=== PATIENT | male | born 1965 | race Caucasian/White ===

== ENCOUNTER 2022-04-14 08:40 | Inpatient (IN) | payer OTHER, SELFPAY ==
[2022-04-14] VITALS (10 sets, daily range): BP systolic 150–192; BP diastolic 83–116; PULSE 78–106; RESP 12–20; TEMP 36.2–37; O2SAT 95–98; BMI 26.6; BMI 25.8
--- NOTE | 2022-04-14 08:57 | ED.RN ---
PT. WAS ELECTROCUTED IN NOVEMBER WHILE WELDING. PT. WAS NOT SEEN BY ANY DOCTOR. PT. REPORTS LEFT SIDE WEAKNESS HAS BEEN INTERMITTENT SINCE THEN, BUT THIS INCIDENT STARTED ON SUNDAY. HAS WEAK LEFT HAND GRASP. PURPLE DISCOLORATION TO LEFT FOOT. DORSALIS PEDAL PULSE PRESENT.
--- NOTE | 2022-04-14 09:08 | CT_ITS ---
STUDY: CTA HEAD AND NECK WITH CONTRAST REASON FOR EXAM: Male, 57 years old. Stroke RADIATION DOSAGE (If Supplied By Facility): CTDIvol = ( 19.45 ) mGy, DLP = ( 729.61 ) mGycm TECHNIQUE: CT angiography was performed with a multi-detector CT scanner. Data acquisition was obtained from the skull base through the vertex following intravenous administration of 75mL Isovue-370. MIP images were reconstructed from the axial data set. Post-processing of the angiographic images was performed, with multiplanar reformation and 3D reconstruction. Individualized dose optimization techniques were used for this CT. COMPARISON: No relevant priors. FINDINGS: Normal bilateral petrous carotid arteries. Normal right cavernous carotid artery with a normal supraclinoid bifurcation. Normal left cavernous carotid artery with a normal supraclinoid bifurcation. Normal right A1 segments of the anterior cerebral artery. Normal left A1 segments of the anterior cerebral artery. Normal intact anterior communicating artery (ACOM). Normal bilateral A2 segments of the anterior cerebral arteries. Normal right M1 and M2 segments of the middle cerebral arteries, with a normal M1 bifurcation. Normal left M1 and M2 segments of the middle cerebral arteries, with a normal M1 bifurcation. Normal right posterior communicating artery (PCOM). Normal left posterior communicating artery (PCOM). There is no flow in the right vertebral artery. Left vertebral artery is normal. Normal basilar artery with a normal basilar bifurcation. The visualized bilateral superior cerebellar (SCA) arteries are normal. Normal bilateral P1, P2 and visualized P3 segments of the posterior cerebral arteries. There is no demonstrated aneurysm of the [place] of [place]. There is no acute abnormality of the visualized brain. AORTIC ARCH: Normal visualized aortic arch. Normal origins of the brachiocephalic, left common carotid, and left subclavian arteries. RIGHT CAROTID ARTERIES: Normal right common carotid artery (CCA). Normal right common carotid bulb. Normal origin of the right internal carotid (ICA) artery without a hemodynamically significant stenosis. Normal visualized cervical portion of the right internal carotid artery. Normal origin of the right external carotid artery (ECA). LEFT CAROTID ARTERIES: Normal left common carotid artery (CCA). Normal left common carotid bulb. Normal origin of the left internal carotid (ICA) artery without a hemodynamically significant stenosis. Normal visualized cervical portion of the left internal carotid artery. Normal origin of the left external carotid artery (ECA). VERTEBRAL ARTERIES: There is no flow in the right vertebral artery. Left vertebral artery is normal. CT/CTA Head AND Neck W/ Contrast IMPRESSION: Absent flow of the right vertebral artery with occlusion or dissection of uncertain age. No hemodynamically significant internal carotid artery stenosis. No intracranial aneurysm or large vessel occlusion. Electronically Signed: Jakob Nevarez MD at 10:31 EDT ,
--- NOTE | 2022-04-14 09:08 | CT_ITS ---
STUDY: CT BRAIN WITHOUT CONTRAST REASON FOR EXAM: Male, 57 years old. Stroke RADIATION DOSAGE (If Supplied By Facility): CTDIvol = ( 44.99 ) mGy, DLP = ( 812.98 ) mGycm TECHNIQUE: Transaxial CT imaging of the brain was performed without administration of intravenous contrast material. Individualized dose optimization techniques were used for this CT. COMPARISON: No relevant priors. FINDINGS: Normal soft tissue structures. Normal calvarium. Normal size ventricles and extra-axial spaces for the patient''s age. Normal white matter tracts of the cerebral hemispheres. Normal basal ganglia and thalami. Normal brainstem. There is left cerebellar diminished density suggesting prior infarct. There is no intracranial hemorrhage. There are no findings of an acute ischemic infarction. Normal visualized paranasal sinuses. CT/Brain/Head without Contrast IMPRESSION: Chronic involutional changes of the brain. Electronically Signed: Jakob Nevarez MD at 10:28 EDT ,
--- NOTE | 2022-04-14 09:08 | EKG12_ITS ---
Test Reason : NEURO S/SX Blood Pressure : / mmHG Vent. Rate : 073 BPM Atrial Rate : 073 BPM P-R Int : 146 ms QRS Dur : 082 ms QT Int : 366 ms P-R-T Axes : 074 032 062 degrees QTc Int : 403 ms Normal sinus rhythm with sinus arrhythmia Normal ECG Confirmed by EZIO SALCEDO, MOLLY ([id number]), deputy editor in chief JONNA MOSS ([id number]) on 04/18/2022 1:05:23 PM Referred By: MARGA Confirmed By:MOLLY HOLGUIN MD
--- NOTE | 2022-04-14 09:09 | EDS_ITS ---
HPI History of Present Illness Chief Complaint: Neuro S/Sx Informant: patient and spouse/S.O. Narrative Narrative: 7-year-old male presenting to the emergency department with left- sided weakness. Patient states that he was electrocuted at work in November. Since that time he has had intermittent purplish discoloration of the right foot particularly the great toe and pain with walking. He notes that the left leg has been weaker. But beginning on Sunday of this week his left arm is weak and he notes right eye blurry vision with light sensitivity. He states that his dog has been looking his feet for the past few days which he found peculiar. He does not typically go to the doctor and went to see primary care today and he was referred to emergency. He denies any pain in the foot at rest but only with ambulation does he get pain PFSH PFSH Medical History no medical history no medical history Home Medications NK 04/14/22 [History Last Taken Unknown] Allergy/AdvReac Type Severity Reaction Status Date / Time No Known Allergies Allergy Verified 04/14/22 08:40 Social History (Updated 04/14/22 @ 09:[address] Demarco Flower, DO) current gender identity: male Smoking Status: Current every day smoker tobacco type: cigarettes ROS ROS ED Constitutional Constitutional ED: Denies chills, fever(s), sweats or weight loss Eyes Eyes: Reports blurry vision and change in vision; Denies diplopia ENT ENT ED: Denies ear pain, rhinorrhea or sore throat Cardiovascular Cardiovascular: Denies chest pain, orthopnea, palpitations or racing heartbeat Respiratory/Chest Respiratory/Chest: Denies cough, dyspnea or orthopnea Gastrointestinal Gastrointestinal: Denies abdominal pain, diarrhea, nausea or vomiting Genitourinary Genitourinary ED: Denies dysuria, hematuria or urinary frequency Musculoskeletal Musculoskeletal: Reports other Details: See HPI ; Denies arthralgias, back pain, myalgias or neck pain Integumentary Denies abscess or rash Neurologic Neurologic: Reports weakness; Denies headache(s) Psychiatric Psychiatric: Denies anxiety, depression, suicidal ideation or suicidal thoughts Endocrine Endocrinology: Denies polydipsia, polyphagia or polyuria Allergic/Immunologic Allergic/Immunologic ED: Denies mouth swelling, tongue swelling or urticaria EXAM Physical Exam Const Vital Signs: 04/14/22 08:42 04/14/22 10:46 04/14/22 11:06 Temperature 97.1 F L Temperature Source Temporal Pulse Rate 106 H 78 88 Respiratory Rate 17 20 H 18 Blood Pressure 192/116 H 168/93 H 170/85 H Blood Pressure Mean 141 118 113 Pulse Ox 98 97 95 Oxygen Delivery Method Room Air Room Air Room Air 04/14/22 11:50 Temperature Temperature Source Pulse Rate 92 Respiratory Rate 18 Blood Pressure 150/91 H Blood Pressure Mean 110 Pulse Ox 97 Oxygen Delivery Method Room Air Positive well nourished and well developed General Appearance ED: well developed HEENT Reports normocephalic, head/scalp atraumatic, TM's clear and moist mucous membranes Negative for trauma Tympanic Membrane ED: Yes TM's clear Eyes PERRL and EOMs intact bilaterally Neck no lymphadenopathy, supple and no JVD Resp normal respiratory effort and clear to auscultation bilaterally Cardio regular rate, regular rhythm and no murmurs GI normal to inspection, nondistended, normoactive bowel sounds and non-tender Palpation: soft Back/Spine no CVA tenderness and normal ROM Extremity Extremity Narrative: The left foot has a palpable dorsalis pedis pulse. It is warm. There is purplish discoloration of the big toe extending up onto the midfoot. This area does feel cooler than the rest of the foot General Extremety ED: Negative for edema General Extremity: Negative for edema Neuro oriented x3 and CN's II-XII intact bilaterally Neuro Narrative: Patient is able to lift the left arm up off the bed but it drops. Abnormal [id number]. Left leg is unable to be lift off the bed but there is movement against gravity NIH score is 4 Sensorium / Orientation: alert Psych mental status grossly normal Mood & Affect: Negative for depressed or tearful Skin no rashes or lesions noted and no wounds MDM MDM MDM Narrative Medical decision making narrative: Basic blood work fairly unremarkable. My interpretation of the chest x-ray is no acute process. CT the brain was normal. CTA demonstrates absent flow of the right vertebral artery with occlusion and/or dissection of uncertain age. Case was discussed with Dr. Black at [facility]. Case was also discussed with our hospitalist Dr. Gary here and Dr. Mccracken from vascular surgery. I did discuss the importance of stopping smoking and getting his blood pressure well controlled Lab Data Attestation: I reviewed the patient's lab results. Labs: Laboratory Results - last 24 hr 05/27/22 05/27/22 05/27/22 09:10 09:11 09:11 WBC 13.6 H RBC 5.75 Hgb 17.4 H Hct 51.6 MCV 89.7 MCH 30.3 MCHC 33.7 RDW Std Deviation 43.1 RDW Coeff of Antonia 13.1 Plt Count 556 H MPV 9.4 Immature Gran % (Auto) 0.500 Neut % (Auto) 78.5 H Lymph % (Auto) 13.1 L [place] % (Auto) 6.9 Eos % (Auto) 0.3 Baso % (Auto) 0.7 Absolute Neuts (auto) 10.7 H Absolute Lymphs (auto) 1.78 Nucleated RBC % 0 PT 12.2 INR 0.9 APTT 27.4 Sodium Potassium Chloride Carbon Dioxide Anion Gap BUN Creatinine Estim Creat Clear Calc Est GFR (MDRD) Af Amer Est GFR (MDRD) Non-Af BUN/Creatinine Ratio Glucose Lactic Acid Calcium Total Bilirubin Direct Bilirubin AST ALT Alkaline Phosphatase Troponin I High Sens Total Protein Albumin Globulin Lipase POC Glucose 120 H 04/14/22 04/14/22 09:11 09:15 WBC RBC Hgb Hct MCV MCH MCHC RDW Std Deviation RDW Coeff of Antonia Plt Count MPV Immature Gran % (Auto) Neut % (Auto) Lymph % (Auto) [place] % (Auto) Eos % (Auto) Baso % (Auto) Absolute Neuts (auto) Absolute Lymphs (auto) Nucleated RBC % PT INR APTT Sodium 138 Potassium 4.1 Chloride 107 Carbon Dioxide 25.0 Anion Gap 6 BUN 22 H Creatinine 1.09 Estim Creat Clear Calc 72.97 Est GFR (MDRD) Af Amer 89 Est GFR (MDRD) Non-Af 74 BUN/Creatinine Ratio 20.2 H Glucose 125 H Lactic Acid 1.1 Calcium 10.5 H Total Bilirubin 0.40 Direct Bilirubin 0.10 AST 19 ALT 40 Alkaline Phosphatase 130 H Troponin I High Sens 54 Total Protein 7.7 Albumin 3.8 Globulin 3.9 Lipase 98 POC Glucose Radiography Diagnostic Testing: Clinical Impression(s) from Imaging Studies Brain CT 04/14/22 09:08 IMPRESSION: Chronic involutional changes of the brain. Electronically Signed: Jakob Nevarez MD at 10:28 EDT Reading Location ID and State: [facility] / [place] , Service support , Head/Neck CTA 04/14/22 09:08 IMPRESSION: Absent flow of the right vertebral artery with occlusion or dissection of uncertain age. No hemodynamically significant internal carotid artery stenosis. No intracranial aneurysm or large vessel occlusion. Electronically Signed: Jakob Nevarez MD at 10:31 EDT Reading Location ID and State: [facility] / [place] , Service support , Chest X-Ray 04/14/22 09:55 IMPRESSION: Normal x-ray examination of the chest. Electronically Signed: Jakob Nevarez MD at 10:13 EDT Reading Location ID and State: [facility] / [place] , Service support , Discharge Plan Dx/Rx/DC Orders Clinical Impression: Hypertension, Stroke, Continuous tobacco abuse Disposition Disposition: Acute Care Hospital [facility]
[2022-04-14 09:16] LABS: Bedside Glucose 120 mg/dL (74-106)
[2022-04-14 09:22] LABS: Absolute Lymphocyte Count 1.78 X10^3/uL (0.83-4.51); Absolute Neutrophil Count 10.7 X10^3/uL (2.0-7.7); Basophil% 0.7 % (0-1); Eosinophil# 0.04 X10^3/uL; Eosinophils% 0.3 % (0-5); Hematocrit 51.6 % (40-54); Hemoglobin 17.4 g/dL (13.0-16.5); Lymphocyte # 1.78 X10^3/ul (0.83-4.51); Lymphocyte % 13.1 % (19-41); Mean Corp Hgb Conc 33.7 g/dL (32-36); Mean Corpuscular Hgb 30.3 pg (27.0-32.0); Mean Corpuscular Volume 89.7 fL (80-94); Mean Platelet Vol. 9.4 fl (6.2-12.0); Monocyte# 0.94 X10^3/uL; Monocyte% 6.9 % (0-10); NRBC Flagged by Analyzer 0 % (0-5); Neutrophil # 10.65 X10^3/uL (2.7-7.7); Neutrophil % 78.5 % (47-70); Platelet Count 556 K/mm3 (150-450); RBC Distribution Width CV 13.1 % (11.6-14.6); RBC Distribution Width SD 43.1 fl (35.1-43.9); Red Blood Count 5.75 M/mm3 (4.6-6.2); White Blood Count 13.6 K/mm3 (4.4-11.0)
[2022-04-14 09:40] LABS: AST(SGOT) 19 U/L (15-37); Alanine Aminotransfer ALT/SGPT 40 U/L (16-61); Albumin, Serum 3.8 g/dL (3.2-5.0); Alkaline Phosphatase 130 U/L (45-117); Anion Gap 6 (5-15); BUN 22 mg/dL (7-18); BUN/Creat Ratio 20.2 RATIO (10-20); Calcium,Total 10.5 mg/dL (8.5-10.1); Chloride 107 mmol/L (98-107); Creatinine, Serum 1.09 mg/dL (0.70-1.30); EST Glomerular Filtration Rate 74 mL/min (>60); Est Glom Filt Rate - Afr Amer 89 mL/min (>60); Estimated Creatinine Clearance 72.97 ml/min; Globulin 3.9 g/dL (2.2-4.2); Glucose 125 mg/dL (74-106); Lipase 98 U/L (73-393); Potassium 4.1 mmol/L (3.5-5.1); Protein, Total 7.7 g/dL (6.4-8.2); Sodium Level 138 mmol/L (136-145); Troponin-I HS 54 pg/mL (3.0-78.0)
[2022-04-14 09:44] LABS: International Normalized Ratio 0.9; Partial Thromboplast Time 27.4 Seconds (24.1-36.2); Prothrombin Time (Protime)PT. 12.2 SECONDS (11.7-14.9)
[2022-04-14 09:46] LABS: Lactic Acid 1.1 mmol/L (0.4-1.9)
--- NOTE | 2022-04-14 09:55 | RAD_ITS ---
STUDY: X-RAY CHEST REASON FOR EXAM: Male, 57 years old. Stroke TECHNIQUE: Single AP portable view of the chest. COMPARISON: None. FINDINGS: There are monitoring devices. The lungs are clear and expanded. There is no demonstrated pleural abnormality. Normal size heart. Normal mediastinum and marguerite. Normal visualized pulmonary arteries. Normal visualized aortic arch and descending thoracic aorta. There are degenerative changes of the visualized thoracic spine. Normal visualized ribs, clavicles, and shoulders. There is no demonstrated abnormality of the visualized soft tissue structures of the upper abdomen. RAD/Chest 1 View (Portable) IMPRESSION: Normal x-ray examination of the chest. Electronically Signed: Jakob Nevarez MD at 10:13 EDT ,
[2022-04-14] MEDS: hydrALAZINE 20 MG/ML Vial 10 MG IV (10:51)
--- NOTE | 2022-04-14 13:55 | HP.PCM.HOS_ITS ---
[facility] - General General Date of Admission: 04/14/22 Date of Service: 04/14/22 Chief Complaint: Left-sided weakness HPI Narrative KELLY CALLEJAS, is a 57 M who presents presents with left-sided weakness. This past Sunday, patient noted to be weak in his left arm and leg. He waited until today to be evaluated. Patient underwent a head and neck CTA that showed absent flow of the right vertebral artery with occlusion or dissection of uncertain age. Case was reviewed with Dr. Black at [facility] and just recommended further stroke evaluation. Also discussed with Dr. Mccracken of vascular surgery who recommended anticoagulation and no surgical intervention at this time. In November, patient had received some kind of electrical exposure at work. Did not feel well and went home afterwards and just has not been well since then. During that time he is also noticed purpleish discoloration of his left great toe that waxes and wanes. He does get tender at times. He did not seek medical attention for that nor has he sought any kind of medical attention until today for anything else. [facility] Medical History (Updated 04/14/22 @ 14:[address] Alex Gary DO) Hypertension PAD (peripheral artery disease) Medical History no medical history no medical history Home Medications NK 04/14/22 [History Last Taken Unknown] Allergy/AdvReac Type Severity Reaction Status Date / Time No Known Allergies Allergy Verified 04/14/22 08:40 Social History (Updated 04/14/22 @ 13:[address] Alex Gary DO) current gender identity: male Smoking Status: Heavy Smoker (>10/day) alcohol intake: current details: 1-2 tall boys per day substance use type: does not use ROS ROS Narrative Has had teeth removed. Has had issues in regards to his right eye for many years. Does have to close it to be able to focus on things. Does wear reading glasses at baseline. All review of systems were negative except as mentioned above in the history of present illness and the other review of systems. Vital Signs Vital Signs Vital Signs: 04/14/22 08:42 04/14/22 10:46 04/14/22 11:06 Temperature 36.2 C L Temperature Source Temporal Pulse Rate 106 H 78 88 Respiratory Rate 17 20 H 18 Blood Pressure 192/116 H 168/93 H 170/85 H Blood Pressure Mean 141 118 113 Pulse Ox 98 97 95 Oxygen Delivery Method Room Air Room Air Room Air 04/14/22 11:50 Temperature Temperature Source Pulse Rate 92 Respiratory Rate 18 Blood Pressure 150/91 H Blood Pressure Mean 110 Pulse Ox 97 Oxygen Delivery Method Room Air Weight Weight: 79.3 kg Body Mass Index (BMI) 25.8 Physical Exam Const alert and no apparent distress General Appearance: cooperative HEENT normocephalic and head/scalp atraumatic Eyes Eyes Narrative: Bilateral lateral nystagmus Neck no lymphadenopathy and no carotid bruits Resp normal respiratory effort, no retractions, no use of accessory muscles and clear to auscultation bilaterally Cardio regular rate, regular rhythm, S1 normal heart sound and S2 normal heart sound GI normal to inspection, nondistended, normoactive bowel sounds, soft to palpation, non-tender and non-distended Extremity normal to inspection and full ROM Skin no rashes or lesions noted Skin Narrative: Cyanosis of the left great toe on the plantar side Neuro oriented x3 Neuro Narrative: Muscle strength 5 out of 5 in the right upper and right lower extremity. 3 out of 5 in the left upper and left lower extremity. Normal [id number] and [id number] on the right side. Sensorium / Orientation: awake and alert Psych affect normal Results Lab / Micro Data Attestation: I reviewed the patient's lab results. Result Diagrams: 04/14/22 09:11 04/14/22 09:11 Labs: Laboratory Results - last 24 hr 04/14/22 09:10: POC Glucose 120 H 04/14/22 09:11: WBC 13.6 H, RBC 5.75, Hgb 17.4 H, Hct 51.6, MCV 89.7, MCH 30.3, MCHC 33.7, RDW Std Deviation 43.1, RDW Coeff of Antonia 13.1, Plt Count 556 H, MPV 9.4, Immature Gran % (Auto) 0.500, Neut % (Auto) 78.5 H, Lymph % (Auto) 13.1 L, [place] % (Auto) 6.9, Eos % (Auto) 0.3, Baso % (Auto) 0.7, Absolute Neuts (auto) 10.7 H, Absolute Lymphs (auto) 1.78, Nucleated RBC % 0 04/14/22 09:11: PT 12.2, INR 0.9, APTT 27.4 04/14/22 09:11: Sodium 138, Potassium 4.1, Chloride 107, Carbon Dioxide 25.0, Anion Gap 6, BUN 22 H, Creatinine 1.09, Estim Creat Clear Calc 72.97, Est GFR (MDRD) Af Amer 89, Est GFR (MDRD) Non-Af 74, BUN/Creatinine Ratio 20.2 H, Glucose 125 H, Calcium 10.5 H, Total Bilirubin 0.40, Direct Bilirubin 0.10, AST 19, ALT 40, Alkaline Phosphatase 130 H, Troponin I High Sens 54, Total Protein 7.7, Albumin 3.8, Globulin 3.9, Lipase 98 04/14/22 09:15: Lactic Acid 1.[address] 04/14/22 09:08 IMPRESSION: Chronic involutional changes of the brain. Electronically Signed: Jakob Nevarez MD at 10:28 EDT Reading Location ID and State: [facility] / [place] , Service support , Head/Neck CTA 04/14/22 09:08 IMPRESSION: Absent flow of the right vertebral artery with occlusion or dissection of uncertain age. No hemodynamically significant internal carotid artery stenosis. No intracranial aneurysm or large vessel occlusion. Electronically Signed: Jakob Nevarez MD at 10:31 EDT Reading Location ID and State: [facility] / [place] , Service support , Chest X-Ray 04/14/22 09:55 IMPRESSION: Normal x-ray examination of the chest. Electronically Signed: Jakob Nevarez MD at 10:13 EDT Reading Location ID and State: [facility] / [place] , Service support , Assessment & Plan Assessment/Plan (1) Stroke: QUALIFIERS: CVA mechanism: unspecified Qualified Code(s): I63.9 - Cerebral infarction, unspecified (2) Occlusion of right vertebral artery: (3) PAD (peripheral artery disease): PLAN: 1. Stroke * Suspect posterior circulation given the vertebral artery occlusion * Patient already underwent CT angiogram so an MRI would not be necessary at this time. * MRI of the brain, 2D echocardiogram, PT OT, patient already passed bedside swallow evaluation, fasting lipid panel * Medications: Heparin drip and aspirin and high intensity statin 2. Right vertebral artery occlusion * May be thrombotic versus dissection * Case discussed with Dr. Mccracken who recommends anticoagulation. No surgery necessary at this time * Will initiate heparin drip without bolus, given that the onset of his symptoms was this past Sunday risk of hemorrhagic transformation for stroke would be low. 3. Peripheral arterial disease * Patient has cyanosis of his left great toe * Pulses are diminished on the left * Check ankle-brachial indices 4. Hypertension * Suspect patient's chronic been hypertensive as he has not seen medical attention * Monitor for now and then make further adjustments based on how his blood pressure does play out 5. Electrocution * This is according the patient and his . Is unclear to me if patient had a electrocution or shock. He did not seek medical attention and just left work as he was not feeling well. He had no obvious bronson according to he and his . 6. VTE prophylaxis: Not indicated patient be anticoagulated 7. CODE STATUS: Addressed with the patient. Patient wishes to be full CODE STATUS. 8. COVID-19 vaccine hesitancy: Patient has not been vaccinated for COVID 19 nor has he contracted COVID that he is aware of. 9. No medical insurance: Unclear what would need to be done for the patient while he is here in the hospital. Patient expressing desire to leave. Explained to him that we will advised but he certainly is able to leave AGAINST MEDICAL ADVICE but his work-up would be incomplete. Defer to case management and social work to see if patient would need to get Medicaid or Jara he could obtain insurance. Charges/Coding Visit Charges Inpatient E&M: 04733 Init Hosp L3
--- NOTE | 2022-04-14 14:11 | ECHOD_ITS ---
Reason For Study: TIA/CVA Procedure This was a 2D Doppler, Color Flow transthoracic echocardiogram. Exam performed in department. Left Ventricle Normal LV size. Left ventricular systolic function is normal. The estimated ejection fraction is 65 %. Stage 1 diastolic dysfunction. No regional wall motion abnormalities noted. Right Ventricle Normal RV size. Normal systolic function. Atria Normal left atrium. Normal right atrium. Bubble contrast study negative for right to left interatrial shunt. Mitral Valve Normal mitral valve. Tricuspid Valve Normal tricuspid valve. Aortic Valve Normal aortic valve. Pulmonic Valve Normal pulmonic valve. Great Vessels Normal aortic root. The pulmonary artery is normal size. Normal inferior vena cava. Pericardium/Pleural No pericardial effusion. Medication Performed a rapid injection of agitated mix of 9 cc saline and 1cc air to assess for atrial septal defect. MMode/2D Measurements & Calculations LAV(MOD-sp4): 21.4 ml SV(MOD-sp4): 32.2 ml LVAd ap4: 24.3 cm2 LVLd ap4: 7.7 cm EDV(MOD-sp4): 64.3 ml EDV(sp4-el): 65.5 ml LVAs ap4: 14.9 cm2 LVLs ap4: 6.1 cm ESV(MOD-sp4): 32.1 ml ESV(sp4-el): 30.9 ml EF(MOD-sp4): 50.1 % EF(sp4-el): 52.8 % SV(sp4-el): 34.6 ml LA A4 area: 9.5 cm2 RA A4 area: 12.9 cm2 Doppler Measurements & Calculations MV E max flo: 63.1 cm/sec Lat Peak E' Flo: 8.5 cm/sec Med Peak E' Flo: 7.6 cm/sec MV A max flo: 80.9 cm/sec E/E' lat: 7.5 E/E' med: 8.4 MV E/A: 0.78 Ao V2 max: 124.2 cm/sec LV V1 max: 87.4 cm/sec PA V2 max: 129.0 cm/sec Ao max P.2 mmHg LV V1 max P.1 mmHg ECHO/Echo Complete Interpretation Summary Normal LV size. Left ventricular systolic function is normal. The estimated ejection fraction is 65 %. Bubble contrast study negative for right to left interatrial shunt. Stage 1 diastolic dysfunction. Ordering Physician: Alex Gary Performed By: Tiera Rosas RCS
--- NOTE | 2022-04-14 14:11 | ART_ITS ---
Reason For Study: Cyaotic left toe Procedure A bilateral lower extremity continuous wave Doppler with analog waveform analysis and ankle brachial indexes. Left Segmental Pressures Left brachial= 187mmHg. Left posterior tibial artery = 156mmHg. Left dorsalis pedis artery = 139mmHg. The left dorsalis pedis waveforms are biphasic. The left posterior tibial artery waveforms are biphasic. Right Segmental Pressures Right posterior tibial artery = 197mmHg. Right dorsalis pedis artery = 184mmHg. Right digit = 135 mmHg. The right dorsalis pedis waveforms are triphasic. The right posterior tibial artery waveforms are triphasic. Indices The right ankle brachial index by the dorsalis pedis is 0.98. The right ankle brachial index by the posterior tibial artery is 1.05. The right digital-brachial index is 0.72. The left ankle brachial index by the dorsalis pedis is 0.74. The left ankle brachial index by the posterior tibial artery is 0.83. VL/Ankle Brachial Index Interpretation Summary Normal right lower extremity DP and PT ankle-brachial indices of 0.98 and 1.05 respectively with normal triphasic Doppler waveforms. Abnormal left lower extremity DP and PT ankle-brachial index of 0.74 and 0.83 r espectively with biphasic Doppler waveforms consistent with moderate severity arterial occlusive disease. Abnormal left digital waveforms consistent with severe small vessel disease. Ordering Physician: Alex Gary Referring Physician: Gerri Rodríguez Performed By: Elizabeth Woodson RVT
--- NOTE | 2022-04-14 14:16 | NURSING ---
cannot chart on admission assessment, hospitalist in the pt's chart. handoff given to Shania BEYER on PCU
--- NOTE | 2022-04-14 14:33 | CASEMGMT ---
Addendum entered by Elizabeth Kimball 04/14/22 15:02: Pt now getting vascular study at bedside. Keturah BEYER CM Original Note: This RN CM to room to complete CM assessment and admission RN is finishing admit and special procedure technologist is at bedside to complete ECHO at this time. CM to attempt again later. Keturah BEYER CM
[2022-04-14 14:37] LABS: Troponin-I HS 55 pg/mL (3.0-78.0)
[2022-04-14] MEDS: HEPARIN/D5w 25,000 UNITS 25,000 UNITS/250 ML IV.SOLN. 11 UNITS CONT INF (15:54)
[2022-04-14] MEDS: Heparin Injection (Vial) 5,000 UNIT/ML VIAL IV ×2 (15:56→22:57)
[2022-04-14] MEDS: Aspirin 325 MG Tablet PO (15:56)
--- NOTE | 2022-04-14 17:30 | MRI_ITS ---
EXAM: MR HEAD WITHOUT INTRAVENOUS CONTRAST CLINICAL INDICATION: CVA TECHNIQUE: Multiplanar and multisequence MR images of the brain were obtained without intravenous contrast. This report was created using [employer] report generation technology. COMPARISON: ct Apr 14 2022 9:53am FINDINGS: BRAIN AND EXTRA-AXIAL SPACES: Old left cerebellar infarct. No intra- or extra-axial hemorrhage. No intracranial mass or mass effect. Ventricles are appropriate for age. No hydrocephalus. Basal cisterns are patent. SELLA: Unremarkable. Normal sella turcica, pituitary gland, infundibular stalk, optic chiasm and hypothalamus. AUDITORY SYSTEM: Unremarkable. The internal auditory canals are patent. BONES/JOINTS: Unremarkable. No discrete lytic or blastic abnormalities. SINUSES: Unremarkable as visualized. Clear. MASTOID AIR CELLS: Unremarkable as visualized. Clear. ORBITS: Unremarkable as visualized. Both globes, extraocular muscles, optic nerves and retrobulbar fat appear unremarkable. VASCULATURE: Unremarkable as visualized. Normal flow voids in the major intracranial circulation. MRI/Brain without Contrast IMPRESSION: No acute findings in the head/brain. Electronically Signed: Asher Herman MD at 18:39 EDT ,
[2022-04-14] MEDS: Atorvastatin Calcium 80 MG Tablet PO (20:38)
[2022-04-14 22:23] LABS: Partial Thromboplast Time 46.1 Seconds (24.1-36.2)
[2022-04-14] MEDS: 0.9% Saline Lock 10 ML Syringe IV (22:57)
[2022-04-15] VITALS (12 sets, daily range): BP systolic 155–189; BP diastolic 86–99; PULSE 76–109; RESP 18–20; TEMP 36.2–36.6; O2SAT 93–97; BMI 25.8
[2022-04-15 06:14] LABS: Partial Thromboplast Time 51.8 Seconds (24.1-36.2)
[2022-04-15] MEDS: Heparin Injection (Vial) 5,000 UNIT/ML VIAL IV (06:20)
[2022-04-15 06:40] LABS: Cholesterol 169 mg/dL (200); High Density Lipoprotein 37 mg/dL; Triglycerides 132 mg/dL; Very Low Density Lipoprotein 26 mg/dL (5-40)
[2022-04-15] MEDS: Aspirin 81 MG TAB.CHEW PO (08:25)
--- NOTE | 2022-04-15 09:28 | CASEMGMT ---
KAYLEEN HERNANDEZ Assessment: Face to Face with pt for initial transition planning/care coordination assessment. KAYLEEN HERNANDEZ introduced self and role at [facility], pt voices understanding and consents to assessment. Pt is A/O x4 and answers all questions appropriately at this time. Pt sitting up in bed in no distress. Care providers, pharmacy, and demographics verified/updated. Admitting Dx: stroke PCP: Marcos Specialists:Pt denies. Preferred Pharmacy: [facility] Insurance: Self Pay Prescription Benefit:no LW/HPOA: Pt denies having a LW/DPOA and denies need for info regarding AD. LNOK: Ana Maria Gooden, Living Arrangements: Pt lives with in a mobile home with 3 steps to enter with a rail on both sides. Transportation: Pt drives self and denies concerns with transportation. DME/HHC/SNF: Pt has borrowed a rollator from his mil. He denies need for a FWW for himself d/t not having insurance. Pt denies any further DME. Pt denies hx of HHC or SNF stays. Pt states no concerns with going home at time of dc. He denies need for therapy d/t insurance. KAYLEEN HERNANDEZ to notify SW. Pt states no further concerns/needs. CM to follow. Advised pt to ask CM if any further question/concerns/needs arise, voices understanding. Pt Goal: Home Plan: Home
--- NOTE | 2022-04-15 10:02 | PN.HOSP_ITS ---
Subjective Subjective Patient seen and examined. He still complains of left sided weakness, especially in his LUE. He denies any slurring of his speech, mouth droop, or any numbness or tingling. Review of systems is otherwise negative. He remains on heparin drip o/a of right internal carotid stenosis. Objective Data Objective Data Vital Signs: Vital Signs Temp Pulse Resp BP Pulse Ox 97.3 F L 88 18 189/91 H 96 04/15/22 08:21 04/15/22 08:21 04/15/22 08:21 04/15/22 08:21 04/15/22 08:21 Oxygen Delivery Method Room Air Weight: 174 lb 13.225 oz Body Mass Index (BMI) 25.8 Intake & Output: Intake and Output for Last 24 Hours 04/13/22 04/14/22 04/15/22 23:59 23:59 23:59 Intake Total 541.42 / 641.42 248.8 / 248.8 Output Total 300 / 300 200 / 200 Balance 241.42 / 341.42 48.8 / 48.8 Lab / Micro Data Result Diagrams: 04/14/22 09:11 04/14/22 09:11 Labs: Laboratory Results - last 24 hr 04/14/22 14:10: Troponin I High Sens 55 04/14/22 22:03: APTT 46.1 H 04/15/22 05:05: Triglycerides 132, Cholesterol 169, LDL Cholesterol 106, VLDL Cholesterol 26, HDL Cholesterol 37 L, TSH 1.60 04/15/22 05:05: APTT 51.8 H Radiography Diagnostic Testing: Radiology Impression Brain CT 04/14/22 09:08 IMPRESSION: Chronic involutional changes of the brain. Electronically Signed: Jakob Nevarez MD at 10:28 EDT , Head/Neck CTA 04/14/22 09:08 IMPRESSION: Absent flow of the right vertebral artery with occlusion or dissection of uncertain age. No hemodynamically significant internal carotid artery stenosis. No intracranial aneurysm or large vessel occlusion. Electronically Signed: Jakob Nevarez MD at 10:31 EDT , Chest X-Ray 04/14/22 09:55 IMPRESSION: Normal x-ray examination of the chest. Electronically Signed: Jakob Nevarez MD at 10:13 EDT Reading Location ID and State: , Service support , Ankle Brachial Index 04/14/22 14:11 Interpretation Summary Normal right lower extremity DP and PT ankle-brachial indices of 0.98 and 1.05 respectively with normal triphasic Doppler waveforms. Abnormal left lower extremity DP and PT ankle-brachial index of 0.74 and 0.83 respectively with biphasic Doppler waveforms consistent with moderate severity arterial occlusive disease. Abnormal left digital waveforms consistent with severe small vessel disease. Ordering Physician: Alex Gary Referring Physician: Gerri Rodríguez Performed By: Elizabeth Woodson RVT Echocardiogram 04/14/22 14:11 Interpretation Summary Normal LV size. Left ventricular systolic function is normal. The estimated ejection fraction is 65 %. Bubble contrast study negative for right to left interatrial shunt. Stage 1 diastolic dysfunction. Ordering Physician: Alex Gary Performed By: Tiera Rosas RCS Brain MRI 04/14/22 17:30 IMPRESSION: No acute findings in the head/brain. Electronically Signed: Asher Herman MD at 18:39 EDT Reading Location ID and State: [facility] / ID , Service support , Physical Exam Const alert, oriented x3 and no apparent distress Exam Limitations: no limitations HEENT head/scalp atraumatic, moist oral mucous membranes and oropharynx normal Head and Scalp: normocephalic Eyes PERRL, EOMs intact bilaterally and conjunctivae normal Neck no lymphadenopathy, supple and no JVD Resp normal respiratory effort, no retractions, no use of accessory muscles and clear to auscultation bilaterally Cardio regular rate, S1 normal heart sound, S2 normal heart sound and no murmurs GI normal to inspection, nondistended, normoactive bowel sounds, soft to palpation, non-tender and non-distended Extremity normal to inspection and no clubbing, cyanosis or edema Peripheral Pulses: Yes pulses 2+ throughout Skin no rashes or lesions noted Neuro oriented x3 and CN's II-XII intact bilaterally Neuro Narrative: power in LUE is 3/5; power in LLE is 4-/5, no numbness or tingling. Sensorium / Orientation: awake and alert Psych affect normal Assessment & Plan Assessment/Plan (1) PAD (peripheral artery disease): (2) Occlusion of right vertebral artery: (3) Stroke: QUALIFIERS: CVA mechanism: unspecified Qualified Code(s): I63.9 - Cerebral infarction, unspecified (4) Hypertension: PLAN: #LUE and LLE weakness, highly probable for a CVA * still has LUE and LLE weakness, more profound in LUE * MRI of hte brain read as negative for any evidence of stroke * 2D echo showed normal LVSF and EF of 65%. Bubble study negative for right to left interatrial shunt. * PT/OT on board * will get neurology to evaluate patient, as his symptoms are quite indicative of a stroke. A cervical stenosis is a possibility, so will get MRI of the cervical spine * fall precautions * on aspirin and high intensity statin * #Right vertebral artery occlusion * as seen on CTA of the head and neck * on heparin drip; this was discussed with vascular surgery who recommended anticoagulation, and conservative management for now * peripheral arterial studies showed normal RLE dorsalis pedis and posterior tibialis ABPI indices of 0.98 and 1.05; LLE DP and PT ABPI was 0.74 and 0.83 r espectively with moderate severeity arterial occlusive disease, indicative of severe small vessel disease * will need follow up with vascular surgery on outpatient basis * on high intensity statin * #Elevated blood pressure * BP is in the high 180s systolic. Doesnt appear to have a history of hypertens ion * not on any meds * will start patient on PO amlodipine and PO metoprolol * IV hydralazine prn * DVT prophylaxis: lovenox Charges/Coding Visit Charges Inpatient E&M: 74126 Subs Hosp L2
--- NOTE | 2022-04-15 10:15 | TELEMED_ITS ---
[facility] Tele[facility] has confirmed receipt of a request for visit. This document confirms receipt of the order initiating the consult. To find the results of the consultation, please view the patient's reports for the scanned Telemed Consult.
--- NOTE | 2022-04-15 12:16 | CM.ED ---
JONATHAN Note: Referral Source: CM Referral Reason: Financial Assistance SW was advised patient is self pay. SW spoke to patient and his about no insurance. indicated they have never applied for medicaid. said that she brought the W-2 and last year they got the low income stipend from the government. SW indicated that this sba underwriter would recommend completion of the medicaid application and submission and then [facility] can make the determination about patient's eligibility. JONATHAN provided patient with financial packet and also provided information about [facility] and their manager rn case who can also provide assistance. Patient said that his daughter works at a bank and said that their daughter will help with the application. SW encouraged patient to complete the application DOMINIK. said that she paid the $250 to Patient Registration for self pay deposit. Plan: Resources and education provided. Shira JAY
[2022-04-15] MEDS: HEPARIN/D5w 25,000 UNITS 25,000 UNITS/250 ML IV.SOLN. 13 UNITS CONT INF (13:37)
[2022-04-15 13:56] LABS: Partial Thromboplast Time 63.8 Seconds (24.1-36.2)
--- NOTE | 2022-04-15 14:01 | CT_ITS ---
STUDY: CT CERVICAL SPINE WITHOUT CONTRAST REASON FOR EXAM: Male, 57 years old. LUE weakness, cervical stenosis RADIATION DOSAGE (If Supplied By Facility): CTDIvol = ( 21.50 ) mGy, DLP = ( 530.24 ) mGycm TECHNIQUE: High resolution transaxial imaging was performed without contrast material. Sagittal and coronal images were reconstructed. Individualized dose optimization techniques were used for this CT. COMPARISON: None FINDINGS: Normal craniovertebral junction. There are degenerative changes of the anterior atlantoaxial articulation. Normal odontoid process. Normal cervical lordosis. Normal vertebral bodies and posterior osseous elements. C2-3: Normal endplates. Normal disc height and morphology. Normal central canal and intervertebral neuroforamina. C3-4: Moderate broad disc osteophyte complex and bilateral uncovertebral joint hypertrophy produces moderate spinal stenosis and moderate bilateral neural foraminal stenosis. C4-5: Moderate broad disc osteophyte complex and bilateral uncovertebral joint hypertrophy produces moderate spinal stenosis and moderate bilateral neural foraminal stenosis. C5-6: Moderate broad disc osteophyte complex and bilateral uncovertebral joint hypertrophy produces moderate spinal stenosis and moderate bilateral neural foraminal stenosis. C6-7: Moderate broad disc osteophyte complex and bilateral uncovertebral joint hypertrophy produces moderate spinal stenosis and moderate bilateral neural foraminal stenosis. C7-T1: Normal endplates. Normal disc height and morphology. Normal central canal and intervertebral neuroforamina. Normal visualized soft tissue structures. CT/Spine Cervical without Contras IMPRESSION: Multilevel degenerative changes, as described above. Electronically Signed: Denis Pena MD at 16:58 EDT ,
[2022-04-15] MEDS: Metoprolol Tartrate 25 MG Tablet PO ×2 (15:27→20:48)
[2022-04-15] MEDS: amLODIPine 10 MG Tablet PO (15:27)
[2022-04-15] MEDS: Atorvastatin Calcium 80 MG Tablet PO (20:48)
[2022-04-16] VITALS (7 sets, daily range): BP systolic 153–159; BP diastolic 90–96; PULSE 65–97; RESP 14–18; TEMP 36.6; O2SAT 94–97; BMI 25.8
[2022-04-16 06:16] LABS: Absolute Lymphocyte Count 2.85 X10^3/uL (0.83-4.51); Absolute Neutrophil Count 7.2 X10^3/uL (2.0-7.7); Basophil# 0.09 X10^3/uL; Basophil% 0.8 % (0-1); Eosinophil# 0.13 X10^3/uL; Eosinophils% 1.1 % (0-5); Hematocrit 49.7 % (40-54); Hemoglobin 16.4 g/dL (13.0-16.5); Lymphocyte # 2.85 X10^3/ul (0.83-4.51); Mean Corpuscular Hgb 30.4 pg (27.0-32.0); Mean Corpuscular Volume 92.2 fL (80-94); Monocyte# 1.02 X10^3/uL; NRBC Flagged by Analyzer 0 % (0-5); Neutrophil # 7.23 X10^3/uL (2.7-7.7); Neutrophil % 63.6 % (47-70); Platelet Count 556 K/mm3 (150-450); RBC Distribution Width CV 13.2 % (11.6-14.6); RBC Distribution Width SD 44.5 fl (35.1-43.9); Red Blood Count 5.39 M/mm3 (4.6-6.2); White Blood Count 11.4 K/mm3 (4.4-11.0)
[2022-04-16 06:25] LABS: Partial Thromboplast Time 63.4 Seconds (24.1-36.2)
[2022-04-16 06:51] LABS: Anion Gap 6 (5-15); BUN 24 mg/dL (7-18); BUN/Creat Ratio 27.8 RATIO (10-20); Chloride 107 mmol/L (98-107); Creatinine, Serum 0.86 mg/dL (0.70-1.30); EST Glomerular Filtration Rate 96 mL/min (>60); Est Glom Filt Rate - Afr Amer 116 mL/min (>60); Estimated Creatinine Clearance 92.49 ml/min; Glucose 104 mg/dL (74-106); Potassium 3.9 mmol/L (3.5-5.1); Sodium Level 137 mmol/L (136-145)
[2022-04-16 07:12] LABS: Hemoglobin A1c 5.3 % (3.8-5.6)
[2022-04-16] MEDS: Metoprolol Tartrate 25 MG Tablet PO (07:20)
[2022-04-16] MEDS: Aspirin 81 MG TAB.CHEW PO (07:20)
[2022-04-16] MEDS: amLODIPine 10 MG Tablet PO (07:21)
--- NOTE | 2022-04-16 09:34 | PN.HOSP_ITS ---
Subjective Subjective Patient seen and examined. He still has the LUE weakness, though he says it is improving. His LLE weakness is also improving. REview of systems is otherwise negative. Objective Data Objective Data Vital Signs: Vital Signs Temp Pulse Resp BP Pulse Ox 97.9 F 65 14 159/92 H 94 04/16/22 07:16 04/16/22 07:35 04/16/22 07:16 04/16/22 07:20 04/16/22 07:20 Oxygen Delivery Method Room Air Weight: 174 lb 13.225 oz Body Mass Index (BMI) 25.8 Intake & Output: Intake and Output for Last 24 Hours 04/14/22 04/15/22 04/16/22 23:59 23:59 23:59 Intake Total 541.42 / 641.42 943.27 / 943.27 238.33 / 238.33 Output Total 300 / 300 625 / 625 300 / 300 Balance 241.42 / 341.42 318.27 / 318.27 -61.67 / -61.67 Lab / Micro Data Result Diagrams: 04/16/22 05:46 04/16/22 05:46 Labs: Laboratory Results - last 24 hr 04/15/22 12:46: APTT 63.8 H 04/15/22 20:11: APTT 63.0 H 04/16/22 05:46: WBC 11.4 H, RBC 5.39, Hgb 16.4, Hct 49.7, MCV 92.2, MCH 30.4, MCHC 33.0, RDW Std Deviation 44.5 H, RDW Coeff of Antonia 13.2, Plt Count 556 H, MPV 10.0, Immature Gran % (Auto) 0.500, Neut % (Auto) 63.6, Lymph % (Auto) 25.0, [place] % (Auto) 9.0, Eos % (Auto) 1.1, Baso % (Auto) 0.8, Absolute Neuts (auto) 7.2, Absolute Lymphs (auto) 2.85, Nucleated RBC % 0 04/16/22 05:46: Sodium 137, Potassium 3.9, Chloride 107, Carbon Dioxide 24.0, Anion Gap 6, BUN 24 H, Creatinine 0.86, Estim Creat Clear Calc 92.49, Est GFR (MDRD) Af Amer 116, Est GFR (MDRD) Non-Af 96, BUN/Creatinine Ratio 27.8 H, Glucose 104, Calcium 10.0 04/16/22 05:46: Hemoglobin A1c 5.3 04/16/22 05:46: APTT 63.4 H Radiography Diagnostic Testing: Radiology Impression Cervical Spine CT 04/15/22 14:01 IMPRESSION: Multilevel degenerative changes, as described above. Electronically Signed: Denis Pena MD at 16:58 EDT , Physical Exam Const alert, oriented x3 and no apparent distress General Appearance: cooperative Exam Limitations: no limitations HEENT normocephalic, head/scalp atraumatic, moist oral mucous membranes and oropharynx normal Head and Scalp: normocephalic Eyes PERRL, EOMs intact bilaterally and conjunctivae normal Neck no lymphadenopathy, supple, no JVD and no carotid bruits Resp normal respiratory effort, no retractions, no use of accessory muscles and clear to auscultation bilaterally Cardio regular rate, regular rhythm, S1 normal heart sound, S2 normal heart sound and no murmurs GI normal to inspection, nondistended, normoactive bowel sounds, soft to palpation, non-tender and non-distended Extremity normal to inspection, full ROM and no clubbing, cyanosis or edema Peripheral Pulses: Yes pulses 2+ throughout Skin no rashes or lesions noted Neuro oriented x3, CN's II-XII intact bilaterally and moves all extremities Neuro Narrative: power in LUE is 3+/5; power in LLE is 4-/5, no numbness or tingling. 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 Will add on plavix * fall precatutions * counseled to quit smoking * on high intensity statin. * A1C is 5.3 * neurology recommends an event monitor on discharge * #Right vertebral artery occlusion * as seen on CTA of the head and neck * on heparin drip; this was discussed with vascular surgery who recommended anticoagulation, and conservative management for now * peripheral arterial studies showed normal RLE dorsalis pedis and posterior tibialis ABPI indices of 0.98 and 1.05; LLE DP and PT ABPI was 0.74 and 0.83 respectively with moderate severeity arterial occlusive disease, indicative of severe small vessel disease * will need follow up with vascular surgery on outpatient basis * on high intensity statin * will dc heparin drip, per discussion with neurology; patient being placed on plavix. * #Elevated blood pressure * BP is in the high 180s systolic. Doesnt appear to have a history of hypertension * started on PO amlodipine and metoprolol * IV hydralazine prn * DVT prophylaxis: lovenox Disposition: * evaluated by PT/OT and deemed as needing skilled therapy. * Will need placement in acute rehab facility. * Case management on board. Charges/Coding Visit Charges Inpatient E&M: 72052 Subs Hosp L2
[2022-04-16] MEDS: Clopidogrel Bisulfate 75 MG Tablet PO (10:21)
--- NOTE | 2022-04-16 12:51 | PCM.DC.SUM ---
Providers Date of Admission: 04/14/22 Primary Care Physician: Dr. Talib Rodríguez DO Reason For Visit: STROKE Diagnosis Discharge Diagnosis (1) PAD (peripheral artery disease): Status: Acute Code(s): I73.9 - Peripheral vascular disease, unspecified (2) Occlusion of right vertebral artery: Status: Acute Code(s): I65.01 - Occlusion and stenosis of right vertebral artery (3) Stroke: Status: Acute Code(s): I63.9 - Cerebral infarction, unspecified Qualifiers: CVA mechanism: unspecified Qualified Code(s): I63.9 - Cerebral infarction, unspecified (4) Hypertension: Status: Chronic Code(s): I10 - Essential (primary) hypertension Medications at Discharge Home Medications NK 04/14/22 amlodipine 10 mg PO DAILY #30 tab 04/16/22 aspirin 81 mg PO BREAKFAST #30 tab 04/16/22 atorvastatin 40 mg PO DAILY #30 tab 04/16/22 clopidogrel 75 mg PO DAILY #30 tab 04/16/22 metoprolol tartrate 25 mg PO BID #60 tab 04/16/22 Hospital Course Operations None Procedures 2-D Echocardiogram Summary of Care Provided Minutes Spent on Discharge: 45 Hospital Course: Patient is a 57-year-old male with a past medical history as outlined was admitted through the ED on 04/14/2022 with a complaint of left-sided weakness which started about 4 days prior to admission. Weakness involved his left upper and left lower extremities. CT of the brain didn't show any evidence of a stroke. CTA of the head and neck showed absent flow of the right vertebral artery with occlusion or dissection of uncertain age. Vascular surgery was consulted, and recommended anticoagulation. He was therefore started on heparin drip. He was admitted to rule out a stroke. He also complained of purplish discoloration of hte left great toe. MRI of the brain done was read as negative for a stroke. He had peripheral arterial studies which showed evidence of moderate arterial occlusive disease of the left lower extremity. 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 He was started on aspirin and plavix and high intensity statin. Heparin drip was discontinued. A1C was 5.3. He worked with PT/OT and was deemed as needing skilled therapy. Due to patient's lack of insurance, he preferred to be discharged on outpatient PT.OT. He was also started on p.o. amlodipine and metoprolol on account of elevated blood pressure. He was counseled to quit smoking. 2D echo done showed EF of 65% with stage I diastolic dysfunction and negative contrast study. He was discharged home on 04/16/2022 on PO aspirin, plavix, amlodipine and metoprolol. He is to follow up with PCP and neurology on outpatient basis. Per neurology recommendations, he was also discharged on an event monitor. Patient was seen and examined prior to discharge. He had no active complaints nad said the weakness in his left side was improving. Review of systems was otherwise negative. Labs and vitals reviewed. Home meds reviewed and reconciled. Physical Exam Const alert, oriented x3 and no apparent distress General Appearance: cooperative Exam Limitations: no limitations HEENT normocephalic, head/scalp atraumatic, hearing grossly normal bilaterally, moist oral mucous membranes and oropharynx normal Eyes PERRL, EOMs intact bilaterally and conjunctivae normal Eyes Narrative: Bilateral lateral nystagmus Neck no lymphadenopathy, supple, no JVD and no carotid bruits Resp normal respiratory effort, no retractions, no use of accessory muscles and clear to auscultation bilaterally Cardio regular rate, regular rhythm, S1 normal heart sound, S2 normal heart sound and no murmurs GI normal to inspection, nondistended, normoactive bowel sounds, soft to palpation, non-tender and non-distended Extremity normal to inspection, full ROM and no clubbing, cyanosis or edema Skin no rashes or lesions noted Skin Narrative: Cyanosis of the left great toe on the plantar side Neuro oriented x3, CN's II-XII intact bilaterally and moves all extremities Neuro Narrative: power in LUE is 3+/5; power in LLE is 4-/5, no numbness or tingling. Sensorium / Orientation: awake and alert Psych affect normal Weight / BMI Weight Weight: 174 lb 13.225 oz Body Mass Index (BMI) 25.8 ABG / Lab / Microbiology Data Result Diagrams: 04/16/22 05:46 04/16/22 05:46 Laboratory: Laboratory Results - last 24 hr 04/15/22 12:46: APTT 63.8 H 04/15/22 20:11: APTT 63.0 H 04/16/22 05:46: WBC 11.4 H, RBC 5.39, Hgb 16.4, Hct 49.7, MCV 92.2, MCH 30.4, MCHC 33.0, RDW Std Deviation 44.5 H, RDW Coeff of Antonia 13.2, Plt Count 556 H, MPV 10.0, Immature Gran % (Auto) 0.500, Neut % (Auto) 63.6, Lymph % (Auto) 25.0, Wright % (Auto) 9.0, Eos % (Auto) 1.1, Baso % (Auto) 0.8, Absolute Neuts (auto) 7.2, Absolute Lymphs (auto) 2.85, Nucleated RBC % 0 04/16/22 05:46: Sodium 137, Potassium 3.9, Chloride 107, Carbon Dioxide 24.0, Anion Gap 6, BUN 24 H, Creatinine 0.86, Estim Creat Clear Calc 92.49, Est GFR (MDRD) Af Amer 116, Est GFR (MDRD) Non-Af 96, BUN/Creatinine Ratio 27.8 H, Glucose 104, Calcium 10.0 04/16/22 05:46: Hemoglobin A1c 5.3 04/16/22 05:46: APTT 63.4 H Radiography Diagnostic Testing: Radiology Impression Cervical Spine CT 04/15/22 14:01 IMPRESSION: Multilevel degenerative changes, as described above. Electronically Signed: Denis Pena MD at 16:58 EDT Reading Location ID and State: [address] [place] [address] Tel , Service support , D/C Instructions Discharge Diet: Low fat / Low cholesterol Discharge Activity: Return to Normal Activity Weight Bearing Status: Weight bearing as tolerated Meaningful Use Info Meaningful Use Diagnoses (Choose all that apply): Ischemic CVA CVA Therapy Assessed for PT,OT and/or ST?: Yes Ischemic Stroke Antithrombotic order at d/c?: Yes Dx of Atrial fib/flutter?: No Anticoagulant at discharge?: No Reason anticoagulant not ordered: Treatment not Indicated Statins at discharge?: Yes Primary Dx Acute Ischemic CVA?: Yes IV tPA ordered during stay?: No Reason IV t-PA not ordered: Treatment not Indicated Discharge Plan Admission Admit Date/Time: 04/14/22 13:49 Primary Reason for Your Visit: acute CVA Attending Provider: Kay Escalona Primary Care Provider: Talib Rodríguez Consulting Providers: Alex Gary Instructions Patient Instructions: Stroke and Heart Disease, Risk Factors for Stroke, Stroke Prevention Eating Healthy, Stroke Prevention Activity Discharge Orders/Prescriptions Prescriptions: New clopidogrel 75 mg Tablet 75 mg PO DAILY Qty: 30 RF: 2 amlodipine 10 mg Tablet 10 mg PO DAILY Qty: 30 RF: 2 aspirin 81 mg Tablet,Chewable 81 mg PO BREAKFAST Qty: 30 RF: 0 metoprolol tartrate 25 mg Tablet 25 mg PO BID Qty: 60 RF: 2 atorvastatin 40 mg tablet 40 mg PO DAILY Qty: 30 RF: 2 No Action NK RF: 0 Referrals / Follow Up: Wilber Mccracken MD [STAFF PHYSICIAN] - Within 2 Weeks Talib Rodríguez DO [Primary Care Provider] - Within 2 Weeks Srinath Gonzalez MD [NON-STAFF] - Within 2 Weeks Disposition Disposition (needs filled in before D/C Order can be placed): Home Health Service Charges/Coding Visit Charges Inpatient E&M: 06313 Disch Hosp
== END 2022-04-16 15:43 | disposition home health service (06) | DRG 64 ==
LOC: ED 13:06 → PCU 14:22
PROVIDERS: Emergency Provider Emergency Medicine; PCP Family Medicine; Visit Provider Student in an Organized Health Care Education/Training Program
DX: I63.9 Cerebral infarction, unspecified (principal); I77.74 Dissection of vertebral artery; G81.94 Hemiplegia, unspecified affecting left nondominant side; I73.9 Peripheral vascular disease, unspecified; I65.01 Occlusion and stenosis of right vertebral artery; I10 Essential (primary) hypertension; F17.210 Nicotine dependence, cigarettes, uncomplicated; R29.702 NIHSS score 2; Z28.310 Unvaccinated for COVID-19; Z28.89 Immunization not carried out for other reason; Z59.7 Insufficient social insurance and welfare support; Z79.02 Long term (current) use of antithrombotics/antiplatelets; Z79.82 Long term (current) use of aspirin; Z79.899 Other long term (current) drug therapy
CPT/HCPCS: 36415; 70450; 70496; 70498; 70551; 71045; 72125; 80048; 80061; 80076; 82962; 83036; 83605; 83690; 84443; 84484; 85025; 85610; 85730; 92610; 93005; 93306; 93922; 94762; 97110; 97112; 97116; 97162; 97166; 97530; 99251; 99284; 99406; Q9967; A4216; G0463

== ENCOUNTER → 2022-06-26 | Outpatient (CLI) | payer MEDICAID, SELFPAY ==
--- NOTE | 2022-06-26 08:12 | CT_ITS ---
STUDY: CTA NECK WITH CONTRAST REASON FOR EXAM: Male, 57 years old. Right vertebral occlusion. Hypertension. RADIATION DOSAGE (If Supplied By Facility): CTDIvol = ( 18.21 ) mGy, DLP = ( 631.30 ) mGycm TECHNIQUE: CT angiography with multi-detector data acquisition was performed from the aortic arch to the skull base following intravenous administration of IV 100mL Isovue-370. MIP images were reconstructed from the axial data set. Post-processing of the angiographic images was performed, with multiplanar reformation and 3D reconstruction. Individualized dose optimization techniques were used for this CT. COMPARISON: Comparison is made with prior examination dated 04/14/2022. FINDINGS: Calcified right hilar lymph nodes. AORTIC ARCH: Normal visualized aortic arch. Normal origins of the brachiocephalic, left common carotid, and left subclavian arteries. RIGHT CAROTID ARTERIES: Normal right common carotid artery (CCA). Normal right common carotid bulb. Normal origin of the right internal carotid (ICA) artery without a hemodynamically significant stenosis. Normal visualized cervical portion of the right internal carotid artery. Normal origin of the right external carotid artery (ECA). LEFT CAROTID ARTERIES: Normal left common carotid artery (CCA). Normal left common carotid bulb. Normal origin of the left internal carotid (ICA) artery without a hemodynamically significant stenosis. Normal visualized cervical portion of the left internal carotid artery. Normal origin of the left external carotid artery (ECA). VERTEBRAL ARTERIES: Nonvisualization of the right vertebral artery suggestive of occlusion. CT/CTA Neck W/WO Contrast IMPRESSION: Nonvisualization of the right vertebral artery. There has been no change. Electronically Signed: Sarabjit Joseph MD at 15:06 EDT ,
[2022-06-26 08:30] LABS: CREATININE FINGERSTICK < 0.9 mg/dL (0.70-1.30); EGFR FINGERSTICK > 60.0000 mL/min (>60)
== END | disposition home or self-care (01) ==
LOC: CT 07:51
PROVIDERS: PCP Family Medicine; Referring Provider Surgery Vascular Surgery; Visit Provider Surgery Vascular Surgery
DX: I65.23 Occlusion and stenosis of bilateral carotid arteries (principal); I12.0 Hypertensive chronic kidney disease with stage 5 chronic kidney disease or end stage renal disease; I70.0 Atherosclerosis of aorta; I70.213 Atherosclerosis of native arteries of extremities with intermittent claudication, bilateral legs; I77.1 Stricture of artery; I10 Essential (primary) hypertension; F17.200 Nicotine dependence, unspecified, uncomplicated; Z86.73 Personal history of transient ischemic attack (TIA), and cerebral infarction without residual deficits
CPT/HCPCS: 70498; Q9967

== ENCOUNTER → 2022-07-14 | Outpatient (CLI) | payer MEDICAID, SELFPAY ==
--- NOTE | 2022-07-14 15:27 | MRI_ITS ---
STUDY: MRI CERVICAL SPINE WITHOUT CONTRAST REASON FOR EXAM: Male, 57 years old. Assess for cervical spinal stenosis, TECHNIQUE: Standardized fat and water weighted pulse sequences were obtained in the sagittal and axial planes. COMPARISON: CT cervical spine 04/15/2032 FINDINGS: Normal foramen magnum and brainstem-cervical cord junction. Normal craniovertebral junction. Normal anterior atlantoaxial articulation. Normal odontoid process. Normal cervical lordosis. Normal vertebral bodies and posterior osseous elements. C2-3: Normal endplates. Normal disc height, signal and morphology. Normal central canal and intervertebral neural foramina. C3-4: Moderate broad-based posterior disc marginal osteophyte and severe narrowing of the neural foramina bilaterally due to uncinate spondylosis. C4-5: Normal endplates. Normal disc height, signal and morphology. Normal central canal and uncinate spondylosis with moderate bilateral narrowing intervertebral neural foramina. C5-6: Normal endplates. Normal disc height, signal and morphology. Normal central canal and uncinate spondylosis with moderate bilateral narrowing intervertebral neural foramina. C6-7: Normal endplates. Normal disc height, signal and morphology. Normal central canal and uncinate spondylosis with moderate bilateral narrowing intervertebral neural foramina. C7-T1: Normal endplates. Normal disc height, signal and morphology. Normal central canal and intervertebral neural foramina. Normal cervical cord. Normal visualized soft tissue structures. MRI/Spine Cervical (Routine) IMPRESSION: Broad-based posterior disc marginal osteophyte at C3-4. Multilevel bilateral neural foraminal narrowing as above. Electronically Signed: Mega Fernandez MD at 0:09 EDT ,
== END | disposition home or self-care (01) ==
LOC: MRI 15:26
PROVIDERS: PCP Family Medicine; Visit Provider Psychiatry & Neurology Neurology
DX: M48.02 Spinal stenosis, cervical region (principal); M25.78 Osteophyte, vertebrae; R26.9 Unspecified abnormalities of gait and mobility
CPT/HCPCS: 72141

== ENCOUNTER → 2022-08-02 | Outpatient (CLI) | payer MEDICAID, SELFPAY ==
--- NOTE | 2022-08-02 08:44 | AAVD_ITS ---
Reason For Study: ATHEROSCLEROSIS OF AORTA Aorta Measurements Aorta Doppler Measurements Proximal aorta measures1.83 X 1.81cm. in cross- Peak systolic flow velocities within the proximal sectional axis. aorta measure 72.3 cm/sec. Proximal aorta measures1.79cm. in longitudinal Peak systolic flow velocities within the mid aorta axis. measure 63.8 cm/sec. Mid aorta measures1.79 X 1.73cm. in cross- Peak systolic flow velocities within the distal sectional axis. aorta measure 63.7 cm/sec. Mid aorta measures1.78cm. in longitudinal axis. Distal aorta measures1.77 X 1.75cm. in cross- sectional axis. Distal aorta measures1.74cm. in longitudinal axis. Left Iliac Artery Left iliac artery measures 0.87 X 0.86 cm. in the cross-sectional axis. Left iliac artery measures 0.69 cm. in the longitudinal axis. Peak systolic velocity in the left iliac artery measures 184.0 cm/sec. Right Iliac Artery Right iliac artery measures 0.93 X 0.89 cm. in the cross-sectional axis. Right iliac artery measures 0.84 cm. in the longitudinal axis. Peak systolic velocity in the right iliac artery measures 211.5 cm/sec. VL/Abd Aortic/IVC Duplex scan Interpretation Summary No evidence aortoiliac stenosis or aneurysmal disease. Ordering Physician: Wilber Mccracken Referring Physician: Jose Flores Performed By: Baylee Garcia, RDCS, RVT
--- NOTE | 2022-08-02 08:44 | ART_ITS ---
Reason For Study: PAD Procedure A bilateral lower extremity continuous wave Doppler with analog waveform analysis and ankle brachial indexes. Left Segmental Pressures Left brachial= 111mmHg. Left posterior tibial artery = 120mmHg. Left dorsalis pedis artery = 100mmHg. Left digit = 42 mmHg. The left posterior tibial artery waveforms are biphasic. The left dorsalis pedis waveforms are monophasic. Right Segmental Pressures Right brachial= 110mmHg. Right posterior tibial artery = 126mmHg. Right dorsalis pedis artery = 111mmHg. Right digit = 141 mmHg. The right posterior tibial artery waveforms are triphasic. The right dorsalis pedis waveforms are triphasic. Indices The right resting ankle brachial index is 1.14. The right ankle brachial index by the posterior tibial artery is 1.14. The right ankle brachial index by the dorsalis pedis is 1.00. The right digital-brachial index is 1.27. The left resting ankle brachial index is 1.08. The left ankle brachial index by the posterior tibial artery is 1.08. The left ankle brachial index by the dorsalis pedis is 0.9. The left digital-brachial index is 0.38. VL/Ankle Brachial Index Interpretation Summary Bilateral no significant occlussive disease at rest with DYLLAN 1.14 and 1.08. Sma ll vessel disease left leg with DBI 0.38. Left leg with biphasic flow noted. Ordering Physician: Wilber Mccracken Referring Physician: Wilber Mccracken Performed By: Baylee Garcia RVT, RDCS
== END | disposition home or self-care (01) ==
LOC: CVS 08:42
PROVIDERS: PCP Family Medicine; Referring Provider Surgery Vascular Surgery; Visit Provider Surgery Vascular Surgery
DX: I70.0 Atherosclerosis of aorta (principal); I70.213 Atherosclerosis of native arteries of extremities with intermittent claudication, bilateral legs; I77.1 Stricture of artery; I65.23 Occlusion and stenosis of bilateral carotid arteries; E78.5 Hyperlipidemia, unspecified; I10 Essential (primary) hypertension; F17.200 Nicotine dependence, unspecified, uncomplicated; Z86.73 Personal history of transient ischemic attack (TIA), and cerebral infarction without residual deficits
CPT/HCPCS: 93922; 93978

== ENCOUNTER 2022-09-29 09:30 | Outpatient (RCR) | payer MEDICAID, SELFPAY ==
--- NOTE | 2022-05-03 14:29 | HP.PTEVAL_ITS ---
Patient's Visit Information KELLY RADHA CALLEJAS is a 57 year old M referred to Physical Therapy by ANUM MOON with a diagnosis of CVA. Date of Evaluation: 05/03/22 Physical Therapist: Margareth Owens DPT - Visit Plan Frequency: 2x /Week Duration: 4 Weeks Plan: Focus on LE and core strength/stabilization, proprioception and functional mobility - Subjective Patient's reports he had a stroke at the end of March and it effected his whole left side. In November he was working but had to take off 6 weeks because he could not walk but they did not know it was a stroke- thought it was a pinched nerve. April 06- he could not move his left leg or arm- thought it was the same thing- the dog was licking his left foot and hand- and he got worse- they finally took him to the MD who sent him to the ER. 04/14 admission and then 04/17 they discharged him home. 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 He can't move the foot but feels that their is a golf ball under the foot. No pain in the leg just he gets leg cramps and it gets tired very quickly. Fully I prior to stroke- working through a [employer] agency- walking, standing, mopping, etc. 3 stairs to enter on both sides and then on one floor. He is not driving again. He is able to get himself dressed but his helps with bathing and socks/shoes. No falls- uses the walker all the time. PMHx/Meds: see list in chart from hospital- no changes. - Objective Posture: FH, RS- can correct but does not maintain. Gait: Rollator- left foot drop with progression of left foot with hip flexion. Decreased stance on the left LE with poor heel/toe pattern. HR/TR: able on the right- unable on the left. SLS: weight shift but unable to SLS without significant UE A. Stairs: asc/desc 8 non recip with 2 HR and CGA. ROM: WFL in all planes. Strength: Core: fair, Right LE: 5/5, Left: Hip: 4-/5, Knee: 3+/5, Ankle: 2+/5. Flex: HS: moderate, Gastroc: severe Soleus: severe. Balance: wide KAYLYN: 1 min no LOB, narrow KAYLYN: 15 sec then LOB and required PT for righting - Balance/Special Test Scores Lower Extremity Functional Score: 6 TUG Test Time Seconds: 26 - Goals Goal 1:: Patient will be I with HEP and progression Goal Time Frame: 4-6 Weeks Goal 2:: Patient will perform TUG test in under 10 sec with LRD Goal Time Frame: 4-6 Weeks Goal 3:: Patient will perform 5 sit to stands without UE A Goal Time Frame: 4-6 Weeks Goal 4:: Patient will asc/desc 8 stairs recip with 1 HR Goal Time Frame: 4-6 Weeks Goal 5:: Patient will return 80% improvement Goal Time Frame: 4-6 Weeks - Rehabilitation Potential Physical Therapy Diagnosis: Patient presents with hypomobility- he has decreased LE and core strength/stabilization, proprioception, flex and muscular endurance leading to abnormal gait and decreased ability to perform ADL's - Anticipated Interventions Patient/Client Instruction: Educate patient on: Benefits of Fitness Program Therapeutic Exercise to Include: Strength training, Endurance training, Balance training, Coordination, Agility training, Body mechanics, Postural training, Flexibilty training, Gait and locomotor training, Dynamic Lumbar Stabilization, Scapular Strength/Stabilization For the Purpose of:: To improve muscle performance and motor function Thank you for the opportunity to evaluate your patient. For Medicare and Medicare HMO plans, please review the plan of care and approve it. It will need to be FAXED BACK to us at [phone] for Medicare purposes. For Medicare only, by signing this I certify the plan of care. Please let me know if there are questions or concerns regarding this plan of care. Physician Signature:___ Date:
--- NOTE | 2022-05-03 16:26 | HP.OTEVAL ---
Patient's Visit Information KELLY RADHA CALLEJAS is a 57 year old M, referred to Occupational Therapy by ANUM MOON, with a diagnosis of left side weakness. Date of Evaluation: 05/03/22 Occupational Therapist: FLO Riley/Carmen, CHT - Subjective This 57 year old male was seen for OT eval with dx of CVA and left UE involvement- pt limited with mobility ambulation with rollator and limited left UE AROM pt demo drop foot - is assisting pt with all ADLs and IADLs at this time- prior to pts stroke pt was IND. 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 pt would like to return to work and cooking dressing tasks as soon as possible - ADLs Bathing: Handle washcloth & soap, Wash hair, Squeeze shampoo bottle Comments: using shower chair and grab bars Grooming: Squeeze toothpaste on, [place] teeth Comments: is washing pts hair Yard: Mow lawn, [place], Transfer, Use shovel, Use pruners, Use trowel Comments: is doing all yard work and gardening Miscellaneous: Open medication bottle, Hold change, Take things out of wallet, Carry shopping bag, Use hand tools, Use power tools, Drive Comments: pt tries to cook some meals - ROM Shoulder: right 160 left 70* Elbow: right /left WNL Forearm: right WNL left supination 65* pronation WNL - Strength Shoulder: 5/5 left 3/5 Elbow: 5/5 left 3/5 Operations And Maintenance Specialist: right 80# left 20# Lateral Pinch: right 18# left 8# Tripod Pinch: right 18# left 4# - Nine Hole Peg Right: right 22.66 Left: left 1:14 Comments: left fine motor below average - Stroke Specific Quality of Life Total SS-QOL Score: 136 - Goals Goal:: PT will demo an increase in tool repairer strength by 30# to increase independent with basic occupations of daily living to return pt to PLOF by D/C. Pt will demo an increase in lateral and tripod pinch by 4# to increase pts independent with opening baggies, containers at PLOF by D/C. Goal:: pt will demo full left forearm supination to increase ind. with dress and receiving small objects by dc. pt will demo a increase in left shoulder ROM to 145* or greater to increase pts ind.with ADLs and IADLs by d.c Goal:: pt will demo a decrease in 9-hole peg test to under 30 sec or less indicating increase in FMS by d/c. pt will demo the ability to manipulate buttons and zippers in less than 30 sec as precursor to dressing tasks by d,c - Rehabilitation General Assessment: pt demo with a left UE weakness and limited ROM that increases need for help from others- pt would benefit from skilled services 2x week for 4 weeks. Today therapist ed. pt and pts spouse on AROM, AAROM and FMS tasks to increase functional use of left UE. pt and pts demo understanding and agree to POC. Rehabilitation Potential: Good - Anticipated Interventions A/AAROM/PROM, Strengthening, Fine Motor Coord/Scott, Neuro Reeducation, Education re assistive Equipment, Education re Diagnosis, Caregiver Training, Home Program - Visit Plan Frequency: 2-3x /Week Duration: 4 Weeks TEXT: Thank you for the opportunity to evaluate your patient. For Medicare and Medicare HMO plans, please review the plan of care and approve it. It will need to be FAXED BACK to us at [phone] for Medicare purposes. Please let me know if there are questions or concerns regarding this plan of care. Physician Signature: Date:
--- NOTE | 2022-06-01 11:01 | HP.PTREVAL ---
ANUM MOON, It has been my pleasure to treat KELLY CALLEJAS over the last 8 visits for CVA. Please see the progress note below for an update on the physical therapy plan of care! Subjective: Patient and - she reports that he is standing more in the kitchen to cook. Took his heart monitor off and it looks great. He reports that his toes keep bending up under. Objective/Function: Posture: Fair throughout. Gait: Rollator- left foot drop with progression of left foot with hip flexion. Decreased stance on the left LE with poor heel/toe pattern- improved foot placement. HR/TR: able on the right- unable on the left in standing- does have 50% movement in sitting. SLS: 3 seconds. Stairs: asc/desc 8 recip with 2 HR for safety. ROM: WFL in all planes. Strength: Core: fair, Right LE: 5/5, Left: Hip: 4/5, Knee: 3+/5, Ankle: 2+/5. Flex: HS: moderate, Gastroc: severe Soleus: severe. Plan Plan: 06/01/22: Continue to progress towards goals of Indep. Called and spoke to clinical medical administrative assistant today for AFO on left Balance/Gait/Functional tests - Balance/Special Test Scores Lower Extremity Functional Score: 29 TUG Test Time Seconds: 14.85 Tug Test: <20 sec.=mostly independent 30 Second Chair Rise Test Seconds: 11 Goals Goal 1:: Patient will be I with HEP and progression Goal Time Frame: 4-6 Weeks Goal 2:: Patient will perform TUG test in under 10 sec with LRD Goal Time Frame: 4-6 Weeks Goal Progress: Progressing Goal 3:: Patient will perform 5 sit to stands without UE A Goal Time Frame: 4-6 Weeks Goal Progress: Goal Met Goal 4:: Patient will asc/desc 8 stairs recip with 1 HR Goal Time Frame: 4-6 Weeks Goal Progress: Progressing Goal 5:: Patient will return 80% improvement Goal Time Frame: 4-6 Weeks Goal Progress: Progressing Goal 6:: Patient will ambulate >300 feet with LRD Anticipated Interventions Patient/Client Instruction: Educate patient on: Benefits of Fitness Program Therapeutic Exercise to Include: Strength training, Endurance training, Balance training, Coordination, Agility training, Body mechanics, Postural training, Flexibilty training, Gait and locomotor training, Dynamic Lumbar Stabilization, Scapular Strength/Stabilization For the Purpose of:: To improve muscle performance and motor function Please do not hesitate to contact me at [phone] by phone or if you have questions or concerns regarding this new plan of care! Sincerely, NATY HernandezT
--- NOTE | 2022-06-22 09:57 | HP.PTREVAL ---
ANUM MOON, It has been my pleasure to treat KELLY CALLEJAS over the last 14 visits for CVA. Please see the progress note below for an update on the physical therapy plan of care! Subjective: Patient reports that he is doing pretty good. He is using less of the walker and using the young-walking on uneven ground with the walker. No falls. He is back to cooking and baking which was a big goal. He is getting in/out of the bath tub. Fully I with ADL's. His is starting to get back to work- so he will be left for longer and longer periods of time. Objective/Function: Posture: Fair throughout. Gait: Rollator- left foot drop with progression of left foot with hip flexion- does have increased DF in swing phase. Decreased stance on the left LE with poor heel/toe pattern- improved foot placement. HR/TR: able on the right- unable on the left in standing- does have 75% movement in sitting. SLS:8 seconds. Stairs: asc/desc 8 recip with 2 HR for safety. ROM: WFL in all planes. Strength: Core: fair, Right LE: 5/5, Left: Hip: 4/5, Knee: 4-/5, Ankle: 2+/5. Flex: HS: moderate, Gastroc: severe Soleus: severe. Plan Plan: 06/22/22: Continue with current POC- work towards cane use and functional mobility. 06/15/22: AFO fitting 06/29 @11:00. 06/01/22: Continue to progress towards goals of Indep. Called and spoke to clinical assistant teaching professor today for AFO on left Balance/Gait/Functional tests - Balance/Special Test Scores Lower Extremity Functional Score: 29 TUG Test Time Seconds: 15 Tug Test: <20 sec.=mostly independent 30 Second Chair Rise Test Seconds: 11 Goals Goal 1:: Patient will be I with HEP and progression Goal Time Frame: 4-6 Weeks Goal 2:: Patient will perform TUG test in under 10 sec with LRD Goal Time Frame: 4-6 Weeks Goal Progress: Progressing Goal 3:: Patient will perform 5 sit to stands without UE A Goal Time Frame: 4-6 Weeks Goal Progress: Goal Met Goal 4:: Patient will asc/desc 8 stairs recip with 1 HR Goal Time Frame: 4-6 Weeks Goal Progress: Progressing Goal 5:: Patient will return 80% improvement Goal Time Frame: 4-6 Weeks Goal Progress: Progressing Goal 6:: Patient will ambulate >300 feet with LRD Anticipated Interventions Patient/Client Instruction: Educate patient on: Benefits of Fitness Program Therapeutic Exercise to Include: Strength training, Endurance training, Balance training, Coordination, Agility training, Body mechanics, Postural training, Flexibilty training, Gait and locomotor training, Dynamic Lumbar Stabilization, Scapular Strength/Stabilization For the Purpose of:: To improve muscle performance and motor function Please do not hesitate to contact me at [phone] by phone or if you have questions or concerns regarding this new plan of care! Sincerely, NATY HernandezT
== END 2022-09-29 19:00 | disposition home or self-care (01) ==
LOC: OT 09:30
PROVIDERS: PCP Family Medicine; Referring Provider Nurse Practitioner Family; Visit Provider Nurse Practitioner Family
DX: I69.334 Monoplegia of upper limb following cerebral infarction affecting left non-dominant side (principal)
CPT/HCPCS: 97110; 97116; 97162; 97164; 97166; 97530

== ENCOUNTER 2022-11-09 10:53 | Outpatient (RCR) | payer MEDICAID, SELFPAY ==
--- NOTE | 2022-11-09 12:01 | HP.PTDCSUM ---
It has been my pleasure to treat KELLY CALLEJAS referred by ANUM MOON, with the diagnosis of for a total of 20 visit(s). Discharge Date: Please see the following information for a summary of their discharge status. Subjective: Patient reports he finally got social security. Fully I with all ADL's and cooking- he is wearing his AFO. He uses a cane in the the grocery store and uses the rollator at home and the community. He does go without it at some points at home. % Improvement: 30 Objective/Function: Posture: Fair throughout. Gait: Rollator- wearing AFO on the left LE- does have forward posture and swings the left LE around in swing phase HR/TR: able on the right SLS:15 seconds. Stairs: asc/desc 8 recip with 1 HR for safety. ROM: WFL in all planes. Strength: Core: fair, Right LE: 5/5, Left: Hip: 4+/5, Knee: 4+/5, Ankle: 2+/5. Flex: HS: moderate, Gastroc: severe Soleus: severe. Plan: Discharge to [facility]- gave name of [employer] to see about employment opportunities If there are questions or concerns regarding this patient's physical therapy, please feel free to call me at [phone]. Thank you for the referral of this patient. Sincerely, Margareth Owens, DPT Balance/Gait/Functional tests - Balance/Special Test Scores Tug Test: <20 sec.=mostly independent
--- NOTE | 2022-11-09 12:16 | HP.OTDCSUM ---
It has been my pleasure to treat KELLYPauline CALLEJAS under orders from ANUM MOON, for the diagnosis of CVA for a total of 21 visit(s). Please see the following information for a summary of their discharge status. % Improvement: 80 Objective/Function: Today- L- AROM- Supination-85 degrees. Today- L- AROM- shoulder extension- 120 degrees. Eval-Surveyor Chain Helper: right 80# left 20#. -Pt stated he is doing zippers, buttons and tying shoes indep. Today Surveyor Chain Helper: right 95#, left 70#. Eval- Lateral Pinch: right 18# left 8#. Today- Lateral Pinch: right 22# left 18#. Eval Tripod Pinch: right 18# left 4#. Today Tripod Pinch: right 21# left 19#. Eval- - Nine Hole Peg, Right: right 22.66, Left: left 1:14. Today- Nine Hole Peg, Right: right 20.57, Left: left 30.81 Patient Goals: Regain Mobility, Regain Strength, Improve Fine Motor Skills, Use Hand/Wrist/Arm Normally Again, Be More Independent in ADLS Plan: Discharge due to running out of insurance- good progress since Eval. Discharge Comments: pt has transitioned to [facility] as he has met goals. pt and pts agree with POC. they also agreed to return to if any difficulties arise. pt d/c at this time. If there are questions or concerns regarding this patient's occupational therapy, please fell free to call me at [phone]. Thank you for the referral of this patient. Sincerely, Della Kaplan, OTR/L, CHT
== END 2022-11-09 12:40 | disposition home or self-care (01) ==
LOC: PT 10:53
PROVIDERS: PCP Family Medicine; Referring Provider Nurse Practitioner Family; Visit Provider Nurse Practitioner Family
DX: I63.9 Cerebral infarction, unspecified (principal); M21.372 Foot drop, left foot
CPT/HCPCS: 97164; 97530

== ENCOUNTER → 2023-03-19 | Outpatient (CLI) | payer MEDICAID, SELFPAY ==
--- NOTE | 2023-03-19 10:40 | CDU_ITS ---
Reason For Study: RT VERTEBRAL ART OCCLUSION Rt. Velocities/BP Lt. Velocities/BP Prox CCA 112.4/21.2 cm/sec. Prox CCA 108.0/19.0 cm/sec. Mid CCA 104.7/325.6 cm/sec. Mid CCA 97.1/22.3 cm/sec. Dist CCA 94.9/20.1 cm/sec. Dist CCA 90.5/19.0 cm/sec. Prox ICA 90.8/24.8 cm/sec. Prox ICA 76.0/24.4 cm/sec. Mid ICA 72.1/ cm/sec. Mid ICA 96.5/19.2 cm/sec. Dist ICA 73.2/21.5 cm/sec. Dist ICA 61.4/20.8 cm/sec. Rt. ICA/CCA = 90.8/104.7=0.88. Lt. ICA/CCA = 96.5/97.1=0.99. Prox ECA 86.1/14.6 cm/sec. Prox ECA 119.5/20.0 cm/sec. Rt. Vert. 34.9/0.0 cm/sec. Lt. Vert. 86.7/26.3 cm/sec. Right Extracranial There is homogeneous, smooth atherosclerotic plaque noted in the right common carotid artery. There is homogeneous, irregular atherosclerotic plaque noted in the right internal carotid artery. There is intimal thickening but no significant atherosclerotic plaque noted in the right external carotid artery. Left Extracranial There is homogeneous, smooth atherosclerotic plaque noted in the left common carotid artery. There is intimal thickening but no significant atherosclerotic plaque noted in the left internal carotid artery. There is intimal thickening but no significant atherosclerotic plaque noted in the left external carotid artery. Antegrade flow is noted in the left vertebral artery. VL/Carotid Duplex Ultrasound Interpretation Summary Mild (<50%) stenosis right extracranial internal carotid. Normal left extracranial internal carotid. The right vertebral artery is patent with high resistance waveforms. The left vertebral artery is patent and antegrade. Ordering Physician: Toni Morataya Referring Physician: Jose Flores Performed By: Baylee Garcia RDCS, RVT
== END | disposition home or self-care (01) ==
LOC: CVS 10:35
PROVIDERS: PCP Family Medicine; Referring Provider Psychiatry & Neurology Neurology; Visit Provider Psychiatry & Neurology Neurology
DX: I65.01 Occlusion and stenosis of right vertebral artery (principal); Z86.73 Personal history of transient ischemic attack (TIA), and cerebral infarction without residual deficits
CPT/HCPCS: 93880

== ENCOUNTER → 2024-03-06 | Outpatient (CLI) | payer MEDICAID, SELFPAY ==
--- NOTE | 2024-03-06 09:44 | CDU_ITS ---
Reason For Study: TIA Rt. Velocities/BP Lt. Velocities/BP Prox CCA 88.1/18.2 cm/sec. Prox CCA 112.1/24.9 cm/sec. Mid CCA 101.4/21.2 cm/sec. Mid CCA 86.3/20 cm/sec. Dist CCA 79.5/17.9 cm/sec. Dist CCA 69.1/23.7 cm/sec. Prox ICA 100.3/19 cm/sec. Prox ICA 93.7/24.9 cm/sec. Mid ICA 63.1/18.6 cm/sec. Mid ICA 69.1/26.2 cm/sec. Dist ICA 89.4/32.2 cm/sec. Dist ICA 63/18.8 cm/sec. Rt. ICA/CCA = 1.14. Lt. ICA/CCA = 1.09. Prox ECA 83.9/14.6 cm/sec. Prox ECA 93.7/17.6 cm/sec. Rt. Vert. 16.3/4.8 cm/sec. Lt. Vert. 58.1/24.9 cm/sec. Right Extracranial There is homogeneous, smooth atherosclerotic plaque noted in the right common carotid artery. There is homogeneous, smooth atherosclerotic plaque noted in the right internal carotid artery. There is intimal thickening but no significant atherosclerotic plaque noted in the right external carotid artery. Antegrade flow is noted in the right vertebral artery. Left Extracranial There is homogeneous, smooth atherosclerotic plaque noted in the left common carotid artery. There is heterogeneous, irregular atherosclerotic plaque noted in the left internal carotid artery. There is intimal thickening but no significant atherosclerotic plaque noted in the left external carotid artery. Antegrade flow is noted in the left vertebral artery. Procedure Carotid Duplex [id number]. This is a Carotid Duplex examination using B-mode, color flow and specral Doppler. Exam performed in department. VL/Carotid Duplex Ultrasound Interpretation Summary Mild (<50%) stenosis right extracranial internal carotid. Mild (<50%) stenosis left extracranial internal carotid. Patent and antegrade vertebrals bilaterally. Ordering Physician: Toni Morataya Referring Physician: Jose Flores Performed By: Elizabeth Woodson RVT
== END | disposition home or self-care (01) ==
LOC: CVS 09:38
PROVIDERS: PCP Family Medicine; Referring Provider Psychiatry & Neurology Neurology; Visit Provider Psychiatry & Neurology Neurology
DX: I65.01 Occlusion and stenosis of right vertebral artery (principal); Z86.73 Personal history of transient ischemic attack (TIA), and cerebral infarction without residual deficits
CPT/HCPCS: 93880

== ENCOUNTER → 2024-03-26 | Outpatient (CLI) | payer MEDICAID, SELFPAY ==
[2024-03-26 12:28] LABS: Absolute Lymphocyte Count 4.01 X10^3/uL (0.83-4.51); Absolute Neutrophil Count 9.3 X10^3/uL (2.0-7.7); Basophil# 0.12 X10^3/uL; Basophil% 0.8 % (0-1); Eosinophil# 0.31 X10^3/uL; Eosinophils% 2.1 % (0-5); Hematocrit 46.5 % (40-54); Hemoglobin 14.8 g/dL (13.0-16.5); Lymphocyte # 4.01 X10^3/ul (0.83-4.51); Lymphocyte % 26.9 % (19-41); Mean Corp Hgb Conc 31.8 g/dL (32-36); Mean Corpuscular Hgb 26.8 pg (27.0-32.0); Mean Corpuscular Volume 84.1 fL (80-94); Mean Platelet Vol. 10.2 fl (6.2-12.0); Monocyte% 7.4 % (0-10); NRBC Flagged by Analyzer 0 % (0-5); Neutrophil # 9.31 X10^3/uL (2.7-7.7); Neutrophil % 62.3 % (47-70); POSITIVE COUNT YES; Platelet Count 1165 K/mm3 (150-450); RBC Distribution Width CV 15.6 % (11.6-14.6); RBC Distribution Width SD 47.5 fl (35.1-43.9); Red Blood Count 5.53 M/mm3 (4.6-6.2); White Blood Count 14.9 K/mm3 (4.4-11.0)
[2024-03-26 12:35] LABS: AST(SGOT) 16 U/L (15-37); Alanine Aminotransfer ALT/SGPT 24 U/L (16-61); Albumin, Serum 3.4 g/dL (3.2-5.0); Alkaline Phosphatase 119 U/L (45-117); Anion Gap 3 (5-15); BUN 14 mg/dL (7-18); BUN/Creat Ratio 15.9 RATIO (10-20); Bilirubin, Direct 0.06 mg/dL (0.00-0.30); Calcium,Total 9.5 mg/dL (8.5-10.1); Chloride 111 mmol/L (98-107); Cholesterol 103 mg/dL (200); Creatinine, Serum 0.88 mg/dL (0.70-1.30); EST Glomerular Filtration Rate 94 mL/min (>60); Est Glom Filt Rate - Afr Amer 113 mL/min (>60); Globulin 3.5 g/dL (2.2-4.2); Glucose 83 mg/dL (74-106); High Density Lipoprotein 31 mg/dL; Potassium 4.3 mmol/L (3.5-5.1); Protein, Total 6.9 g/dL (6.4-8.2); Sodium Level 141 mmol/L (136-145); Triglycerides 113 mg/dL; Very Low Density Lipoprotein 23 mg/dL (5-40)
[2024-03-26 13:06] LABS: Differential Indicated SCAN CRITERIA MET
[2024-03-26 13:46] LABS: Platelet Estimate MKD INC (ADEQ)
[2024-03-27 13:31] LABS: Pathologist Review Reviewed
== END | disposition home or self-care (01) ==
PROVIDERS: PCP Family Medicine; Referring Provider Psychiatry & Neurology Neurology; Visit Provider Psychiatry & Neurology Neurology
DX: E78.00 Pure hypercholesterolemia, unspecified (principal)
CPT/HCPCS: 36415; 80053; 80061; 82248; 85025

== ENCOUNTER → 2024-10-28 | Outpatient (CLI) | payer MEDICARE, MEDICAID, SELFPAY ==
[2024-10-28 15:30] LABS: Absolute Lymphocyte Count 2.92 X10^3/uL (0.83-4.51); Basophil# 0.14 X10^3/uL; Basophil% 0.9 % (0-1); Eosinophil# 0.36 X10^3/uL; Eosinophils% 2.2 % (0-5); Hematocrit 46.4 % (40-54); Lymphocyte # 2.92 X10^3/ul (0.83-4.51); Lymphocyte % 17.8 % (19-41); Mean Corp Hgb Conc 32.3 g/dL (32-36); Mean Corpuscular Volume 83.5 fL (80-94); Mean Platelet Vol. 10.4 fl (6.2-12.0); Monocyte# 0.92 X10^3/uL; Monocyte% 5.6 % (0-10); NRBC Flagged by Analyzer 0 % (0-5); Neutrophil # 11.97 X10^3/uL (2.7-7.7); POSITIVE COUNT YES; RBC Distribution Width CV 16.1 % (11.6-14.6); RBC Distribution Width SD 48.9 fl (35.1-43.9); Red Blood Count 5.56 M/mm3 (4.6-6.2); White Blood Count 16.4 K/mm3 (4.4-11.0)
[2024-10-28 15:50] LABS: Differential Indicated SCAN CRITERIA MET
[2024-10-28 16:19] LABS: ALB/GLOB Ratio 1.1 RATIO (0.9-2.4); AST(SGOT) 19 U/L (15-37); Alanine Aminotransfer ALT/SGPT 27 U/L (16-61); Albumin, Serum 3.7 g/dL (3.2-5.0); Alkaline Phosphatase 133 U/L (45-117); Anion Gap 7 (5-15); BUN 13 mg/dL (7-18); BUN/Creat Ratio 12.6 RATIO (10-20); Calcium,Total 9.4 mg/dL (8.5-10.1); Chloride 109 mmol/L (98-107); Cholesterol 126 mg/dL (200); Creatinine, Serum 1.03 mg/dL (0.70-1.30); EST Glomerular Filtration Rate 78 mL/min (>60); Est Glom Filt Rate - Afr Amer 94 mL/min (>60); Globulin 3.4 g/dL (2.2-4.2); Glucose 106 mg/dL (74-106); High Density Lipoprotein 32 mg/dL; Potassium 4.2 mmol/L (3.5-5.1); Protein, Total 7.1 g/dL (6.4-8.2); Sodium Level 139 mmol/L (136-145); Triglycerides 141 mg/dL; Very Low Density Lipoprotein 28 mg/dL (5-40)
[2024-10-28 17:50] LABS: Hypochromasia RARE; Platelet Estimate MKD INC (ADEQ)
[2024-10-28 17:52] LABS: Platelet Count 1122 K/mm3 (150-450)
[2024-10-29 13:57] LABS: Pathologist Review Reviewed
== END | disposition home or self-care (01) ==
PROVIDERS: PCP Family Medicine; Referring Provider Family Medicine; Visit Provider Family Medicine
DX: I10 Essential (primary) hypertension (principal); E78.00 Pure hypercholesterolemia, unspecified
CPT/HCPCS: 36415; 80053; 80061; 84443; 85025

== ENCOUNTER → 2025-04-27 | Outpatient (CLI) | payer MEDICARE, SELFPAY ==
--- NOTE | 2025-04-27 13:02 | CDU_ITS ---
Reason For Study Reason For Study: History of stroke Rt. Velocities/BP Lt. Velocities/BP Prox CCA 113.3/22.5 cm/sec. Prox CCA 121.1/22.5 cm/sec. Mid CCA 109.7/23.7 cm/sec. Mid CCA 102.8/17 cm/sec. Dist CCA 86.3/22.5 cm/sec. Dist CCA 90/20.6 cm/sec. Prox ICA 76.5/22.5 cm/sec. Prox ICA 91.9/24.3 cm/sec. Mid ICA 77.7/29.8 cm/sec. Mid ICA 91.2/23.7 cm/sec. Dist ICA 85.1/28.6 cm/sec. Dist ICA 65.4/22.5 cm/sec. Rt. ICA/CCA = 0.78. Lt. ICA/CCA = 0.89. Prox ECA 108.4/18.8 cm/sec. Prox ECA 106.5/17 cm/sec. Rt. Vert. 28.9/8 cm/sec. Lt. Vert. 82.6/23.7 cm/sec. Right Extracranial There is homogeneous, smooth atherosclerotic plaque noted in the right common carotid artery. There is homogeneous, smooth atherosclerotic plaque noted in the right internal carotid artery. There is intimal thickening but no significant atherosclerotic plaque noted in the right external carotid artery. Antegrade flow is noted in the right vertebral artery. Left Extracranial There is homogeneous, smooth atherosclerotic plaque noted in the left common carotid artery. There is heterogeneous, irregular atherosclerotic plaque noted in the left internal carotid artery. There is intimal thickening but no significant atherosclerotic plaque noted in the left external carotid artery. Antegrade flow is noted in the left vertebral artery. Procedure Carotid Duplex [id number]. This is a Carotid Duplex examination using B-mode, color flow and specral Doppler. Exam performed in department. VL/Carotid Duplex Ultrasound Interpretation Summary Mild (<50%) stenosis right extracranial internal carotid. Mild (<50%) stenosis left extracranial internal carotid. Patent and antegrade vertebrals bilaterally. Ordering Physician: Toni Morataya Referring Physician: Jose Flores Performed By: Elizabeth Woodson RVT
== END | disposition home or self-care (01) ==
PROVIDERS: PCP Family Medicine; Referring Provider Psychiatry & Neurology Neurology; Visit Provider Psychiatry & Neurology Neurology
DX: Z09 Encounter for follow-up examination after completed treatment for conditions other than malignant neoplasm (principal); Z86.73 Personal history of transient ischemic attack (TIA), and cerebral infarction without residual deficits
CPT/HCPCS: 93880

== ENCOUNTER → 2025-08-03 | Outpatient (CLI) | payer MEDICARE, SELFPAY ==
[2025-08-03 12:10] LABS: Hematocrit 47.4 % (40-54); Hemoglobin 15.5 g/dL (13.0-16.5); Immature Granulocytes Count 0.050 X10^3/uL (0.0-0.0); Mean Corp Hgb Conc 32.7 g/dL (32-36); Mean Corpuscular Volume 81.6 fL (80-94); Mean Platelet Vol. 10.0 fl (6.2-12.0); NRBC Flagged by Analyzer 0 % (0-5); POSITIVE COUNT YES; RBC Distribution Width CV 16.6 % (11.6-14.6); RBC Distribution Width SD 47.6 fl (35.1-43.9); Red Blood Count 5.81 M/mm3 (4.6-6.2); White Blood Count 14.2 K/mm3 (4.4-11.0)
[2025-08-03 13:07] LABS: AST(SGOT) 23 U/L (<=37); Alanine Aminotransfer ALT/SGPT 12 U/L (<=46); Albumin, Serum 4.2 g/dL (3.4-4.8); Alkaline Phosphatase 127 U/L (40-129); Anion Gap 11 (5-15); BUN 13 mg/dL (4-19); BUN/Creat Ratio 13.9 RATIO (10-20); Calcium,Total 9.9 mg/dL (7.6-11.0); Carbon Dioxide 21.9 mmol/L (21.0-32.0); Chloride 106 mmol/L (98-108); Cholesterol 107 mg/dL (<=200); Globulin 2.9 g/dL (2.2-4.2); Glucose 110 mg/dL (70-99); Low Density Lipoprotein Calc. 59 mg/dL; Potassium 4.5 mmol/L (3.3-5.1); Triglycerides 91 mg/dL; Very Low Density Lipoprotein 18 mg/dL (5-40); cholesterol:hdl ratio screen 3.59
[2025-08-03 13:49] LABS: Differential Indicated SCAN CRITERIA MET; Platelet Count 1348 K/mm3 (150-450)
== END | disposition home or self-care (01) ==
PROVIDERS: PCP Family Medicine; Referring Provider Psychiatry & Neurology Neurology; Visit Provider Psychiatry & Neurology Neurology
DX: I10 Essential (primary) hypertension (principal); D75.839 Thrombocytosis, unspecified
CPT/HCPCS: 36415; 80053; 80061; 85025